=== PATIENT | male | born 2000 | race African-American/Black ===

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

== ENCOUNTER 2020-12-27 14:12 | Emergency (ER) | payer OTHER ==
[~2020-12-27] VITALS: Ht 162.6 cm; Wt 55.0 kg
[~2020-12-27 14:12] MED LIST changes: +ALBU2.5V8; -ALBU8.5H8; +AZIT250T PO
[2020-12-27] MEDS ORDERED: KETOROLAC 60 MG/2 ML VIAL. IM ONE (14:45)
[2020-12-27] MEDS ORDERED: HYDROcodone/APAP 5/325MG 1 TAB TABLET PO ONE (14:45)
--- NOTE | 2020-12-27 14:54 | RAD ---
XR EXAM OF ANKLE_RIGHT 3VIEWS History: Reason: ROLLED ANKLE, PAIN / Spl. Instructions: / History: Technique: 3 views right ankle Comparison: None. Findings: Normal limit. Symmetric ankle mortise. No fracture. Mild lateral ankle soft tissue swelling. Impression: 1. No acute osseous abnormality. 2. Mild lateral ankle soft tissue swelling. Electronically signed by: Huy Minaya DO (12/27/2020 2:52 PM) [facility]
[2020-12-27] MEDS ORDERED: IBUP600T16 PO (15:23)
--- NOTE | 2020-12-27 15:23 | PHYS DOC ---
Past History Past Medical History: Asthma (LUZ MARIA PAZ APRN) Past Surgical History: Other Additional Past Surgical Histo: left eye (LUZ MARIA PAZ APRN) Smoking: Non-smoker, Second-hand Alcohol Use: Occasionally Drug Use: None (LUZ MARIA PAZ APRN) Adult General Chief Complaint Chief Complaint: ANKLE PROBLEM HPI HPI Patient is a 20-year-old male presents to the emergency department planing of right ankle pain stating that he was playing basketball yesterday evening when he rolled his ankle. Patient states he was able to ambulate on his ankle without any problems however did notice some mild pain on the outside of his right ankle. Patient states that he woke up this morning in severe pain rating 10/10 pain in a 1-10 pain scale. Patient states he took 2 [id number] ibuprofen at noon without relief of pain. Patient denies any other physical complaints or physical injuries. Patient denies chest pain, back pain, shortness of breath, chest palpitations, recent fever or chills, increased thirst or increased urination, rashes to his skin. Patient states he has a history of asthma and eczema. Patient reports a surgical history of left eye surgery years ago. Patient denies any allergies to medications. (LUZ MARIA PAZ APRN) Review of Systems Review of Systems 14 body systems of review of systems have been reviewed. See HPI for pertinent positives and negative responses, otherwise all other systems are negative, nonpertinent or noncontributory. (LUZ MARIA PAZ APRN) Current Medications Current Medications Current Medications Medications (Trade) Dose Ordered Sig/Lauren Start Time Stop Time Status Last Admin Dose Admin Acetaminophen/ Hydrocodone Bitart (Lortab 5/325) 2 tab 1X ONCE 12/27/20 14:45 12/27/20 14:46 DC 12/27/20 15:13 2 TAB Ketorolac Tromethamine (Toradol Im) 60 mg 1X ONCE 12/27/20 14:45 12/27/20 14:46 DC (LUZ MARIA PAZ APRN) Allergies Allergies Allergies Coded Allergies Type Severity Reaction Last Updated Verified banana Allergy Unknown 12/27/20 Yes nut - unspecified Allergy Unknown 12/27/20 Yes (LUZ MARIA PAZ APRN) Physical Exam Physical Exam Constitutional: Well developed, well nourished, no acute distress, non-toxic appearance. 20-year-old male in no apparent distress. HENT: Normocephalic, atraumatic, bilateral external ears normal, oropharynx moist, no oral exudates, nose normal. Oropharynx pink, no infectious process noted. No lymphadenopathy appreciated of the head or neck. Eyes: PERRLA, EOMI, conjunctiva normal, no discharge. Neck: Normal range of motion, no tenderness, supple, no stridor. No nuchal rigidity, no midline spinal tenderness. No meningismus signs appreciated. Cardiovascular:Heart rate regular rhythm, heart sounds normal to auscultation. Lungs & Thorax: Bilateral breath sounds clear to auscultation all lung sahu. Abdomen: Bowel sounds normal, soft, no tenderness, no masses, no pulsatile masses. Skin: Warm, dry, no erythema, no rash. Back: No tenderness, no midline spinal tenderness. Extremities: No tenderness, no cyanosis, no clubbing, ROM intact, no edema. Except for right ankle, pain to lateral medial malleoli are bony prominences, 2+ dorsalis pedis/posterior tibial pulse. Distal cap refill less than 2 seconds, full AROM/PROM, no crepitus appreciated. Mild swelling to the lateral malleoli are skin surfaces and adjacent structures. No loss of sensation. Neurologic: Alert and oriented X 3, normal motor function, normal sensory function, no focal deficits noted. Psychologic: Affect normal, judgement normal, mood normal. (LUZ MARIA PAZ APRN) Current Patient Data Vital Signs Vital Signs Date Time Temp Pulse Resp B/P (MAP) Pulse Ox O2 Delivery O2 Flow Rate FiO2 12/27/20 15:13 16 100 12/27/20 14:20 97.5 88 132/81 (98) (LUZ MARIA PAZ APRN) EKG EKG [] (LUZ MARIA PAZ APRN) Radiology/Procedures Radiology/Procedures PATIENT: BIN BROWN ACCOUNT: [id number] : 2000 LOCATION: ER AGE: 20 SEX: M EXAM STATUS: REG ER ORD. PHYSICIAN: LUZ MARIA PAZ APRN REASON: ROLLED ANKLE, PAIN PROCEDURE: ANKLE RIGHT 3V XR EXAM OF ANKLE_RIGHT 3VIEWS History: Reason: ROLLED ANKLE, PAIN / Spl. Instructions: / History: Technique: 3 views right ankle Comparison: None. Findings: Normal limit. Symmetric ankle mortise. No fracture. Mild lateral ankle soft tissue swelling. Impression: 1. No acute osseous abnormality. 2. Mild lateral ankle soft tissue swelling. Electronically signed by: Huy Minaya DO (12/27/2020 2:52 PM) [facility] DICTATED AND SIGNED BY: HUY MINAYA DO DATE: 12/27/20 1448 CC: LUZ MARIA PAZ APRN; PCP,UNKNOWN ~MTH0 0 (LUZ MARIA PAZ APRN) Heart Score C/O Chest Pain: No Risk Factors: Risk Factors: DM, Current or recent (<one month) smoker, HTN, HLP, family histo ry of CAD, obesity. Risk Scores: Risk Factors: DM, Current or recent (<one month) smoker, HTN, HLP, family history of CAD, obesity. (LUZ MARIA PAZ APRN) Course & Med Decision Making Course & Med Decision Making Pertinent Labs and Imaging studies reviewed. (See chart for details) 20-year-old male, vital signs reviewed, presents to the emergency department with concerns of right ankle pain after rolling it while playing basketball yes terday. Physical examination consistent with right ankle sprain, will order x- ray of right ankle to rule out occult fracture per X-ray negative for acute fracture interpreted by house radiologist. Discussed findings with patient, will place Joseph wrap and ankle stirrup splint, crutch use, ice and elevate, RICE therapy. Patient gave verbal understanding of discharge home instructions, follow-up with primary care or provided orthopedic surgeon for ongoing right ankle pain, return ER precautions or concerns, was discharged home without incident. (LUZ MARIA PAZ APRN) Dragon Disclaimer Dragon Disclaimer This electronic medical record was generated, in whole or in part, using a voice recognition dictation system. (LUZ MARIA PAZ APRN) Departure Departure: Impression: Primary Impression: Ankle sprain Disposition: 01 DC HOME SELF CARE/HOMELESS Condition: GOOD Referrals: PCP,UNKNOWN (PCP) LISA CARBONE MD Patient Instructions: Ankle Sprain, Cast or Splint Care, Crutch Use, Elastic Bandage and RICE Additional Instructions: I have prescribed you 600 mg ibuprofen for pain and discomfort, please use Joseph wrap and ankle stirrup for the next several days, you may use crutches as needed, please use RICE therapy, I have given you a orthopedic surgeon to follow-up with for ongoing aches and pains, you may return to the emergency department for worsening symptoms or other concerns. EMERGENCY DEPARTMENT GENERAL DISCHARGE INSTRUCTIONS Thank you for coming to [facility] (ED) today and trusting us with you care. We trust that you had a positivie experience in our Emergency Department. If you wish to speak to the department management, you may call the director at [phone]. YOUR FOLLOW UP INSTRUCTIONS ARE FOLLOWS: 1. Do you have a private Doctor? If you do not have a private doctor, please ask for a resource list of physicians or clinics that may be able to assist you with follow up care. 2. The Emergency Physician has interpreted your x-rays. The X-Ray specialist will also review them. If there is a change in the findings, you will be notified in 48 hours when at all possible. 3. A lab test or culture has been done, your results will be reviewed and you will be notified if you need a change in treatment. ADDITIONAL INSTRUCTIONS AND INFORMATION: 1. Your care today has been supervised by a physician who is specially trained in emergency care. Many problems require more than one evaluation for a complete diagnosis and treatment. We recommend that you schedule your follow up appointment as recommended to ensure complete treatment of you illness or injury. If you are unable to obtain follow up care and continue to have a problem, or if your condition worsens, we recommend that you return to the ED. 2. We are not able to safely determine your condition over the phone nor are we able to give sound medical advice over the phone. For these safety reasons, if you call for medical advice we will ask you to come to the ED for further evaluation. 3. If you have any questions regarding these discharge instructions please call the ED at [phone]. SAFETY INFORMATION: In the interest of safety, wellness, and injury prevention; we encourage you to wear your sealbelt, if you smoke; quite smoking, and we encourage family to use a p rotective helmet for bicycling and other sporting events that present an increased risk for head injury. IF YOUR SYMPTOMS WORSEN OR NEW SYMPTOMS DEVELOP, OR YOU HAVE CONCERNS ABOUT YOUR CONDITION; OR IF YOUR CONDITION WORSENS WHILE YOU ARE WAITING FOR YOUR FOLLOW UP APPOINTMENT; EITHER CONTACT YOUR PRIMARY CARE DOCTOR, THE PHYSICIAN WHOSE NAME AND NUMBER YOU WERE GIVEN, OR RETURN TO THE ED IMMEDIATELY. Scripts Ibuprofen (IBUPROFEN) 600 Mg Tablet 600 MG PO TID PRN PRN for PAIN, #20 TAB 0 Refills Prov: LUZ MARIA PAZ APRN 12/27/20 Attending Signature Attending Signature I have reviewed the PA/ON AIR TALENT's note and plan of care. I was available for consultation as needed during the patient's visit in the emergency department. I agree with the clinical impression, plan, and disposition. (LUZ MARIA BARCLAY DO) Problem Qualifiers Primary Impression: Ankle sprain Encounter type: initial encounter Involved ligament of ankle: unspecified ligament Laterality: right Qualified Codes: S93.401A - Sprain of unspecified ligament of right ankle, initial encounter LUZ MARIA PAZ APRN Dec 27, 2020 15:23 LUZ MARIA BARCLAY DO Dec 27, 2020 19:02
[2020-12-27 15:27] VITALS: BP 128/70
== END 2020-12-27 15:27 | disposition home or self-care (01) ==
LOC: ER 14:12
DX: S93.491A Sprain of other ligament of right ankle, initial encounter (principal); R60.0 Localized edema; J45.909 Unspecified asthma, uncomplicated; Z98.890 Other specified postprocedural states; Z91.018 Allergy to other foods; W21.05XA Struck by basketball, initial encounter; Y93.89 Activity, other specified; Y92.89 Other specified places as the place of occurrence of the external cause; Y99.8 Other external cause status
CPT/HCPCS: 29515; 73610; 99283

== ENCOUNTER 2021-03-03 09:48 | Emergency (ER) | payer OTHER ==
[~2021-03-03] VITALS: Ht 162.6 cm; Wt 55.0 kg
[~2021-03-03 09:48] MED LIST changes: +IBUP600T16 PO
--- NOTE | 2021-03-03 10:25 | PHYS DOC ---
Past History Past Medical History: Asthma, Other Additional Past Medical Histor: ECZEMA Past Surgical History: Other Additional Past Surgical Histo: left eye Smoking: Non-smoker, Second-hand Additional Smoking Information: VAPES Alcohol Use: Occasionally Drug Use: None General Adult EDM: Chief Complaint: KNEE INJURY HPI: HPI: 20-year-old male presents with right medial knee pain. The patient was roughhousing around with friends yesterday. He does not recall any specific injury. His knee really did not hurt yesterday, but when he woke up this morning he had moderate level pain of the right medial knee. He is able to walk but it is tender to palpation. He has never hurt his knee before. No history of surgery. He denies any other injuries at this time. Review of Systems: Review of Systems: Constitutional: Denies fever or chills Eyes: Denies change in visual acuity HENT: Denies nasal congestion or sore throat Respiratory: Denies cough or shortness of breath Cardiovascular: Denies chest pain or edema GI: Denies abdominal pain, nausea, vomiting, bloody stools or diarrhea : Denies dysuria Musculoskeletal: Right medial knee pain Integument: Denies rash Neurologic: Denies headache, focal weakness or sensory changes Endocrine: Denies polyuria or polydipsia Lymphatic: Denies swollen glands Psychiatric: Denies depression or anxiety Allergies: Allergies: Allergies Coded Allergies Type Severity Reaction Last Updated Verified banana Allergy Unknown 12/27/20 Yes nut - unspecified Allergy Unknown 12/27/20 Yes Physical Exam: PE: Constitutional: Well developed, well nourished, no acute distress, non-toxic appearance. [] HENT: Normocephalic, atraumatic, bilateral external ears normal, oropharynx moist, no oral exudates, nose normal. [] Eyes: PERRLA, EOMI, conjunctiva normal, no discharge. [] Neck: Normal range of motion, no tenderness, supple, no stridor. [] Cardiovascular:Heart rate regular rhythm, no murmur [] Lungs & Thorax: Bilateral breath sounds clear to auscultation [] Abdomen: Bowel sounds normal, soft, no tenderness, no masses, no pulsatile masses. [] Skin: Warm, dry, no erythema, no rash. [] Back: No tenderness, no CVA tenderness. [] Extremities: Right knee ligaments with solid end feel. No pain with anterior and posterior drawer. Medial knee pain with palpation, varus and valgus stress. [] Neurologic: Alert and oriented X 3, normal motor function, normal sensory function, no focal deficits noted. [] Psychologic: Affect normal, judgement normal, mood normal. []. Current Patient Data: Vital Signs: Vital Signs Date Time Temp Pulse Resp B/P (MAP) Pulse Ox O2 Delivery O2 Flow Rate FiO2 03/03/21 09:55 98.1 99 20 127/75 (92) 98 Room Air EKG: EKG: [] Radiology/Procedures: Radiology/Procedures: [] Heart Score: C/O Chest Pain: N/A Risk Factors: Risk Factors: DM, Current or recent (<one month) smoker, HTN, HLP, family history of CAD, obesity. Risk Scores: Score 0 - 3: 2.5% MACE over next 6 weeks - Discharge Home Score 4 - 6: 20.3% MACE over next 6 weeks - Admit for Clinical Observation Score 7 - 10: 72.7% MACE over next 6 weeks - Early Invasive Strategies Course & Med Decision Making: Course & Med Decision Making Pertinent Labs and Imaging studies reviewed. (See chart for details) The patient's right knee x-ray is negative for fracture. Based on my exam, I feel like the patient has a medial collateral ligament strain. I have advised that he take 600 mg of ibuprofen 3 times a day and icing multiple times a day. It should improve in a few days. I will give him I will work note for light duty until Friday. He is stable for discharge at this time. [] Shavon Disclaimer: Shavon Disclaimer: This electronic medical record was generated, in whole or in part, using a voice recognition dictation system. Departure Departure: Impression: Primary Impression: Sprain of medial collateral ligament of right knee, initial encounter Disposition: HOME / SELF CARE / HOMELESS Condition: STABLE Referrals: PCP,UNKNOWN (PCP) Patient Instructions: Medial Collateral Knee Ligament Sprain with [facility] SURINDER PUGH DO March 03, 2021 10:25
[2021-03-03 10:30] VITALS: BP 120/62
--- NOTE | 2021-03-03 10:36 | RAD ---
4 view right knee radiographs 03/03/2021 CLINICAL HISTORY: Right knee pain post wrestling. AP, oblique, lateral and sunrise digital radiographs of the right knee were obtained. No fracture or dislocation right knee is seen. There is no radiographic evidence of a joint effusion. No radiopaque foreign body is seen. IMPRESSION: No fracture or dislocation of the right knee is seen. Electronically signed by: Derian Bloom MD (03/03/2021 10:34 AM) [id number]
== END 2021-03-03 10:30 | disposition home or self-care (01) ==
LOC: ER 09:48
DX: S83.411A Sprain of medial collateral ligament of right knee, initial encounter (principal); Z91.02 Food additives allergy status; Z91.018 Allergy to other foods; X58.XXXA Exposure to other specified factors, initial encounter; Y93.89 Activity, other specified; Y92.89 Other specified places as the place of occurrence of the external cause; Y99.8 Other external cause status
CPT/HCPCS: 73564; 99283-25